=== PATIENT | female | born 1990 | race African-American/Black ===

== ENCOUNTER 2017-12-24 09:16 | Day surgery (SDC) | payer BC, MEDICAID ==
[~2017-12-24 09:16] MED LIST: Lactated Ringers 1,000 ML IV SCH; Sodium Chloride 0.9% 10 ML Syringe FLUSH PRN
--- NOTE | 2017-12-24 10:28 | PCM.PN ---
- General Info Date of Service: 12/24/17 - Review of Systems Systems Review Comment:: 27 y/o female with history of symptomatic gallbladder disease here for cholecystectomy. She is medically stable to proceed. there has been no significant recent changes to her health status. I have again reviewed the proposed procedure with the patient. She agrees to proceed accepting risks. - Patient Data Vitals - Most Recent: Last Vital Signs Temp 98.2 F 12/24/17 09:59 Pulse 105 H 12/24/17 09:59 Resp 16 12/24/17 09:59 BP 121/82 12/24/17 09:59 Pulse Ox 98 12/24/17 09:59 Weight - Most Recent: 257 lb Lab Results Last 24 Hours: Laboratory Results - last 24 hr 12/24/17 Range/Units 09:30 Urine HCG, Qual Negative (NEGATIVE) Med Orders - Current: Current Medications Cefazolin Sodium/Dextrose 2 gm (/ Premix) 50 mls @ 100 mls/hr IV ONETIME ONE Stop: 12/24/17 10:59 Lactated Ringer's (Ringers, Lactated) 1,000 mls @ 125 mls/hr IV ASDIRECTED LISSETTE Last Admin: 12/24/17 10:16 Dose: 125 mls/hr Sodium Chloride (Saline Flush) 10 ml FLUSH ASDIRECTED PRN PRN Reason: Keep Vein Open - Problem List Review Problem List Initiated/Reviewed/Updated: Yes - My Orders Last 24 Hours: My Active Orders 12/24/17 09:15 Patient Status [ADT] Routine Blood Glucose Check, Bedside [RC] ONETIME Patient to Empty Bladder [RC] ASDIRECTED RT Incentive Spirometry [RC] ASDIRECTED Verify Patient Consent Obtain [RC] ASDIRECTED Lactated Ringers [Ringers, Lactated] 1,000 ml IV ASDIRECTED Sodium Chloride 0.9% [Saline Flush] 10 ml FLUSH ASDIRECTED PRN Peripheral IV Insertion Adult [OM.PC] Routine Sequential Compression Device [OM.PC] Routine 12/24/17 09:30 HCG QUALITATIVE,URINE [URCHEM] Routine 12/24/17 10:30 ceFAZolin [Ancef] 2 gm Premix Bag 1 bag IV ONETIME 12/24/17 Breakfast Nothing Per Oral Diet [DIET] - Assessment Assessment:: symptomatic gallbladder disease - Plan Plan:: cholecystectomy
[2017-12-24] MEDS ORDERED: ceFAZolin 2 GM in Premix Bag 1 BAG IV ONE (10:30)
[2017-12-24] MEDS ORDERED: Ondansetron 4 MG/2 ML SDV IVPUSH ONE (11:00)
[2017-12-24] MEDS ORDERED: fentaNYL 100 MCG/2 ML SDV IV ONE (11:00)
[2017-12-24] MEDS ORDERED: diphenhydrAMINE 50 MG/ML SDV IV ONE (11:00)
[2017-12-24] MEDS ORDERED: Rocuronium 100 MG/10 ML MDV IV ONE (11:00)
[2017-12-24] MEDS ORDERED: Dexamethasone 4 MG/ML 5 ML MDV IVPUSH ONE (11:00)
[2017-12-24] MEDS ORDERED: Glycopyrrolate 0.2 MG/ML 5 ML MDV IV ONE (11:00)
[2017-12-24] MEDS ORDERED: Propofol 200 MG/20 ML SDV IV ONE (11:00)
[2017-12-24] MEDS ORDERED: Lidocaine 2% 100 MG/5 ML Syringe IVPUSH ONE (11:00)
[2017-12-24] MEDS ORDERED: Lactated Ringers 1,000 ML IV ONE (11:00)
[2017-12-24] MEDS ORDERED: Ketorolac 30 MG/ML SDV IVPUSH ONE (11:00)
[2017-12-24] MEDS ORDERED: Neostigmine Methylsulfate 10 MG/10 ML MDV IVPUSH ONE (11:00)
[2017-12-24] MEDS ORDERED: Bupivacaine 0.5%/EPINEPHrine 1:200,000 50 ML MDV ONE (11:36)
--- NOTE | 2017-12-24 12:30 | PCM.OPNOTE ---
- General Post-Op/Procedure Note Date of Surgery/Procedure: 12/24/17 Operative Procedure(s): Laproscopic cholecystectomy Findings: Gallbladder with normal appearing surrounding structures Pre Op Diagnosis: Symptomatic gallbladder disease Post-Op Diagnosis: Same Anesthesia Technique: General ET Tube Primary Surgeon: Hector Reeves Pathology: Gallbladder Output, Urine Amount: 0 EBL in mLs: 10 Complications: None Condition: Good
--- NOTE | 2017-12-24 19:01 | OR ---
DATE OF OPERATION: 12/24/2017 SURGEON: Hector Reeves MD PREOPERATIVE DIAGNOSIS: Symptomatic gallbladder disease. POSTOPERATIVE DIAGNOSIS: Symptomatic gallbladder disease. OPERATION PERFORMED: Laparoscopic cholecystectomy. INDICATIONS FOR SURGERY: This 27-year-old female has been having symptoms of postprandial nausea and right upper quadrant abdominal pain. Workup has identified the gallbladder to be the most likely source for the symptoms and she comes for cholecystectomy. FINDINGS: The gallbladder appears normal externally as do the adjacent liver and other structures intraabdominally. PROCEDURE IN DETAIL: The patient was taken to the operating room. She was given general endotracheal anesthesia and the abdomen was sterilely prepped and draped. An infraumbilical stab wound incision was made. Through this, a Veress needle was inserted and pneumoperitoneum via this needle to a pressure of 15 mmHg was achieved with carbon dioxide. The Veress needle was replaced with a 12- mm trocar into which the 5 mm variable angled laparoscopic camera was inserted. Under direct visualization, a 5 mm trocar was placed in the subxiphoid midline and also in 2 areas of the right abdomen. All trocar sites were infiltrated with Marcaine prior to incision. Intraabdominal inspection was carried out and then attention was turned to the gallbladder. It was secured with grasping forceps, placed through the lateral trocars and retracted superiorly and anteriorly. Fatty tissue overlying the cystic duct and cystic artery were carefully cleared. These structures were lying adjacent to each other. They were carefully and the cystic artery was doubly clipped and divided. The triangle of Calot was cleared and once the identity of the cystic duct had been clearly and positively identified, it was milked and it too was doubly clipped and divided near the gallbladder with great care being used to avoid any compromise or injury to the common bile duct. The gallbladder was then dissected free from the undersurface of the liver using the hook cautery device. Once the gallbladder had been freed, it was extracted without difficulty through the umbilical trocar site. Reinspection of the gallbladder bed was performed and good hemostasis appeared to be maintained. With no sign of bleeding or any other complication, the trocars were removed under direct visualization and the pneumoperitoneum was evacuated. The fascia of the umbilical trocar site was closed with a [id number] 0 Vicryl suture. Wounds were irrigated with Betadine and saline solution. Skin incisions were approximated with interrupted 4-0 Vicryl in a subcuticular stitch. Steri-Strips and benzoin were applied. Antibiotic ointment and sterile dressings were placed. The patient was awakened, extubated, and taken from the operating room in satisfactory condition. ESTIMATED BLOOD LOSS: 10 mL. COMPLICATIONS: None. PROGNOSIS: Good. /[id number] MARANDA/GIAL
== END 2017-12-24 14:05 | disposition home or self-care (01) ==
LOC: FB.SDS 09:16
PROVIDERS: ATTEND Surgery
DX: K81.1 Chronic cholecystitis (principal); E66.9 Obesity, unspecified; F41.9 Anxiety disorder, unspecified; R73.03 Prediabetes; Z79.899 Other long term (current) drug therapy; Z91.011 Allergy to milk products; Z68.41 Body mass index [BMI] 40.0-44.9, adult; Z79.84 Long term (current) use of oral hypoglycemic drugs
CPT/HCPCS: 47562; 81025; J0131; J0690; J1100; J1200; J1885; J2405; J2704; J2710; J3010; J7120; 88304